=== PATIENT | female | born 1960 | race Caucasian/White ===

== ENCOUNTER → 2017-11-03 14:11 | Outpatient (REF) | payer OTHER, SELFPAY | LOC: LAB 14:11 | PROVIDERS: Visit Provider Emergency Medicine | DX: L98.9 Disorder of the skin and subcutaneous tissue, unspecified (principal) | CPT/HCPCS: 87070; 87077; 87205 ==

== ENCOUNTER → 2018-01-21 10:34 | Outpatient (CLI) | payer OTHER, SELFPAY ==
--- NOTE | 2018-01-21 10:42 | XR_ITS ---
XR chest 2V HISTORY: ITS.REASON: CHEST WALL PAIN,COUGH,H/O TOBACCO USE ORDERING PHYSICIAN: Denny Pack PATIENT AGE: 57 years COMPARISON: None FINDINGS: The cardiomediastinal silhouette and pulmonary vascularity are within normal limits. The lungs are clear without infiltrates, suspicious nodules, or pleural effusions. No acute bony abnormalities. IMPRESSION: Negative chest, no acute finding
== END ==
PROVIDERS: PCP Internal Medicine; Visit Provider Internal Medicine
DX: R07.89 Other chest pain (principal); R05 Cough; Z72.0 Tobacco use
CPT/HCPCS: 71046

== ENCOUNTER → 2018-01-27 09:31 | Outpatient (CLI) | payer OTHER, SELFPAY ==
--- NOTE | 2018-01-27 09:34 | US_ITS ---
US chest Ordering Physician: Denny Pack Patient Age: 57 years: Female HISTORY: ITS.REASON: LT CHEST WALL LIPOMA TECHNIQUE: Ultrasound left chest COMPARISON :2 view chest film 01/21/2018 FINDINGS . Ultrasound of the lower left back overlying the lower ribs performed. Scanning was merely perform the region of the patient's pain. . The majority of the scans apparently were scanned at the lower T-spine in the region to the left of T12 and over Left 11th and 12th ribs.. No unique findings with ultrasound. No discrete mass identified. Review of recent chest film reveals no obvious rib or vertebral body abnormality. The technologist reported no rash along this dermatome. If pain should persist or progress consider rib series or possibly CT chest if severe pain persist. . ----IMPRESSION: --------- 1. Ultrasound the lower back in the region of patient's pain reveals no unique findings. .. No mass evident. ... No architectural distortion of muscle group.
== END ==
PROVIDERS: Family Provider Emergency Medicine; PCP Internal Medicine; Visit Provider Internal Medicine
DX: D17.1 Benign lipomatous neoplasm of skin and subcutaneous tissue of trunk (principal)
CPT/HCPCS: 76604

== ENCOUNTER → 2020-05-03 13:41 | Outpatient (CLI) | payer OTHER, SELFPAY ==
--- NOTE | 2020-05-03 13:50 | US_ITS ---
PROCEDURE: US BREAST LT COMPLETE CLINICAL INDICATION: L BREAST LUMP COMPARISON: No exams were available for comparison FINDINGS: The wrist show fairly homogeneous echogenicity consistent with primarily fatty type breast parenchyma. There is a small hypoechoic nodular lesion near the nipple 3 o'clock position measuring 0.5 x 0.3 by 0.6 cm. This could be a small fibroadenoma but there is no mammogram correlation on mammogram performed same date. There is no abnormal cystic or solid lesion at the 8 to 9 o'clock position at the site of the patient's possible lump. There are normal appearing nodes in the axilla. IMPRESSION: Possible small fibroadenoma near the nipple, no ultrasound correlation for the possible palpable lesion Dictated by: Dr. Jules Urrutia MD 05/08/2020 09:45 Dr. Jules Urrutia MD in [place] 05/08/2020 09:45
--- NOTE | 2020-05-03 13:50 | MM_ITS ---
PROCEDURE: MM DIG MAMM BI DX W/CAD Digital Breast Tomosynthesis Included CLINICAL INDICATION: L BREAST LUMP There is a history of breast cancer in the patient's maternal aunt diagnosed after menopause. There has been a previous biopsy left breast at age 17 for benign disease. There is a possible palpable lump left breast 9 o'clock position felt by the referring physician. COMPARISON: MG DMSB DIGITAL MAMM-SCREEN BILATERAL from 08/17/2011 MG DMSB DIG MAMM-SCREEN AGNIESZKA from 05/23/2014 MG DMSB DIG MAMM-SCREEN AGNIESZKA from 06/10/2015 US US BREAST LT COMPLETE from 05/03/2020 TECHNIQUE: Standard CC and MLO images and 3D Tomosynthesis was obtained. R2 CAD reviewed. FINDINGS: Scattered diffuse fibroglandular densities are seen throughout both breasts. There are 3 mole markers right breast. There are few scattered benign-appearing microcalcifications in each breast. A skin marker was placed on the left breast inner quadrant near the nipple at the site of the patient's possible lump. There is no underlying abnormal density or evidence of architectural distortion at this site. Ultrasound performed the same date showed no abnormality at this location. There is no suspicious lesion and no suspicious microcalcifications. IMPRESSION: Fibrofatty parenchyma with no suspicious lesions seen BI-RAD Category: 2 Benign Finding(s) FOLLOW-UP: 1YR 1 Year Follow-up (A letter has been sent to the patient regarding results of the study.) Dictated by: Dr. Jules Urrutia MD 05/08/2020 09:41 Dr. Jules Urrutia MD in [place] 05/08/2020 09:41
== END ==
PROVIDERS: PCP Internal Medicine; Visit Provider Internal Medicine
DX: N63.20 Unspecified lump in the left breast, unspecified quadrant (principal)
CPT/HCPCS: 76641; 77062; 77066; G0279

== ENCOUNTER → 2020-12-04 14:28 | Outpatient (CLI) | payer OTHER, SELFPAY | PROVIDERS: Visit Provider Internal Medicine | DX: R10.32 Left lower quadrant pain (principal) | CPT/HCPCS: 80053; 81001; 85025; 87086 ==

== ENCOUNTER → 2020-12-04 14:46 | Outpatient (CLI) | payer BC, SELFPAY ==
[2020-12-04 14:35] LABS: Microscopic, Urine URINE MICROSCOPIC (MICROSCOPIC)
--- NOTE | 2020-12-04 14:51 | CT_ITS ---
PROCEDURE: CT ABDOMEN PELVIS WO CON CLINICAL INDICATION: LLQ PAIN Left lower quadrant pain COMPARISON: No exams were available for comparison TECHNIQUE: Axial images obtained with sagittal and coronal reformats. All CT scans at the facility use one or more dose reduction, viz: automated exposure control, ma/kV adjustment per patient size (including targeted exams where dose is matched to indication, i.e. head), or iterative reconstruction technique. FINDINGS: LOWER THORAX: No acute finding ABDOMEN & PELVIS: The liver, spleen, and right adrenal gland are unremarkable. There is mild enlargement of the left adrenal gland measuring 2.6 by 1 cm with an internal air bridge density of -7 Hounsfield units consistent with an adenoma. Pancreas has an unremarkable appearance. No renal or ureteral calculi. There is a mild amount of retained colonic feces. There is easton colonic diverticulosis. The appendix is slightly prominent however, there is no stranding of the periappendiceal fat. No convincing evidence of appendicitis. There is a small segment of bowel wall thickening with mild stranding of the pericolic fat involving the mid aspect of the descending colon at the level of the iliac crest. This is consistent with mild acute diverticulitis. No abscess or free air is evident. There is a small umbilical hernia containing fat. There are mild degenerative changes in the lumbar spine and hips. IMPRESSION: Diverticulitis involves the mid aspect of the descending colon. No evidence of abscess or perforation. Diffuse colonic diverticulosis. Prominent appendix but without stranding of the periappendiceal fat which may be a variant of normal. Appendix measures approximately 10 mm in diameter Small umbilical hernia containing fat. Left adrenal adenoma Dictated by: Tino Rand MD 12/04/2020 15:34 Tino Rand MD in [place] 12/04/2020 15:34
[2020-12-04 14:58] LABS: Appearance,Urine CLEAR (Clear); Bilirubin,Urine Negative (Negative); Blood, Urine Negative (Negative); Color,Urine YELLOW (Yellow); Glucose,Urine (UA) Negative (Negative); Ketones,Urine Negative (Negative); Leukocyte Esterase,Urine 1+ (Negative); Nitrate,Urine Negative (Negative); Protein,Urine Negative (Negative); Specific Gravity, Urine <= 1.005 (1.005-1.030); Urobilinogen,Urine 0.2 EU/dl (0.2)
[2020-12-04 15:02] LABS: Basophils # 0.1 K/mm3 (0-0.2); Basophils % 0.8 % (0.1-2.0); Eosinophils # 0.2 K/mm3 (0.0-0.4); Eosinophils % 2.6 % (0.1-12.0); Hematocrit 38.6 % (37.0-47.0); Hemoglobin 13.3 g/dL (12.2-16.2); Lymphocytes % 31.9 % (10-50); Mean Corpuscular HGB Conc 34.5 g/dL (31.8-35.4); Mean Corpuscular Hemoglobin 29.8 pg (27.0-31.2); Mean Corpuscular Volume 86.3 fl (81-99); Mean Platelet Volume 8.3 fl (7.4-10.4); Monocytes # 0.5 K/mm3 (0.1-1.0); Neutrophils # 3.5 K/mm3 (1.8-7.8); Neutrophils % 56.7 % (37.0-80.0); Platelet Count 211 K/mm3 (142-424); Red Blood Count 4.48 M/mm3 (4.20-5.40); Red Cell Distribution Width 13.2 % (11.5-17.5); White Blood Count 6.2 K/mm3 (4.8-10.8)
[2020-12-04 15:37] LABS: WBC,Urine Occasional #/hpf (0-3)
[2020-12-04 16:02] LABS: Chloride 105 mmol/L (98-107); Potassium 3.9 mmoL/L (3.5-5.1)
[2020-12-04 16:04] LABS: Alanine Aminotransferase 13 U/L (12-78); Aspartate Amino Transferase 22 U/L (14-36); Blood Urea Nitrogen 12 mg/dl (7-17); Estimated Glomerular Filt Rate 86 ml/min (>60); GFR (African American) 104 ML/MIN (>60)
[2020-12-04 16:05] LABS: Albumin Level 4.3 g/dl (3.5-5.0); Albumin/Globulin Ratio 1.6 (1.1-1.8); Alkaline Phosphatase 100 U/L (38-126); Bilirubin,Total 0.9 mg/dl (0.2-1.3); Calcium 9.4 mg/dl (8.4-10.2); Carbon Dioxide 22 mmol/L (22.0-30.0); Globulin 2.7 g/dL (1.3-3.2); Glucose 102 mg/dl (74-100)
[2020-12-04 16:15] LABS: Anion Gap 12.9 mEq/L (5-15); Sodium 136 mmol/L (136-145)
== END ==
PROVIDERS: PCP Internal Medicine; Visit Provider Internal Medicine
DX: R10.32 Left lower quadrant pain (principal)
CPT/HCPCS: 74176; 80053; 81001; 85025; 87086

== ENCOUNTER → 2021-02-05 08:42 | Outpatient (CLI) | payer BC, SELFPAY ==
[2021-02-05 08:54] LABS: Basophils # 0.1 K/mm3 (0-0.2); Basophils % 1.1 % (0.1-2.0); Eosinophils # 0.1 K/mm3 (0.0-0.4); Eosinophils % 1.3 % (0.1-12.0); Hematocrit 42.5 % (37.0-47.0); Hemoglobin 14.5 g/dL (12.2-16.2); Lymphocytes # 1.6 K/mm3 (0.7-4.5); Lymphocytes % 24.5 % (10-50); Mean Corpuscular HGB Conc 34.2 g/dL (31.8-35.4); Mean Corpuscular Hemoglobin 29.2 pg (27.0-31.2); Mean Corpuscular Volume 85.3 fl (81-99); Mean Platelet Volume 8.2 fl (7.4-10.4); Monocytes # 0.5 K/mm3 (0.1-1.0); Monocytes % 6.9 % (1.7-9.3); Neutrophils # 4.3 K/mm3 (1.8-7.8); Neutrophils % 66.2 % (37.0-80.0); Platelet Count 215 K/mm3 (142-424); Red Blood Count 4.98 M/mm3 (4.20-5.40); Red Cell Distribution Width 13.2 % (11.5-17.5); White Blood Count 6.5 K/mm3 (4.8-10.8)
== END ==
PROVIDERS: Visit Provider Surgery
DX: K57.92 Diverticulitis of intestine, part unspecified, without perforation or abscess without bleeding (principal)
CPT/HCPCS: 36415; 85025

== ENCOUNTER → 2021-02-18 09:52 | Outpatient (CLI) | payer BC, SELFPAY | PROVIDERS: Visit Provider Surgery | DX: Z01.812 Encounter for preprocedural laboratory examination (principal); Z20.822 Contact with and (suspected) exposure to COVID-19; Z12.11 Encounter for screening for malignant neoplasm of colon | CPT/HCPCS: U0003 ==

== ENCOUNTER 2021-02-20 07:17 | Day surgery (SDC) | payer BC, SELFPAY ==
[2021-02-18 14:06] VITALS: BMI 28.1
[2021-02-20 07:34] VITALS: BP 118/92; PULSE 100; RESP 18; TEMP 36.8; O2SAT 96
[2021-02-20 08:02] VITALS: O2SAT 97
--- NOTE | 2021-02-20 08:06 | P.PN_ITS ---
[facility] Anesthesia Checklist - Patient Identification Patient Identification: Arm Band - Structural Data Admitted From: Home Planned Operative Procedure/s: colonoscopy Consent for Planned Operative Procedure(s) Verified: Yes Verified Documents: Surgical Consent, History and Physical - Additional verifications Anesthesia Reactions: No - Airway Assessment C-Spine Mobility Assessed: Yes (mp2) TMJ Mobility Assessed: Yes Dentition: Poor Dentition - Neurological Assessment Level of Consciousness: Awake, Alert - Anesthesia Plan Anesthesia Risk discussed: Yes Anesthesia Plan: Verified ASA Class: II Anesthesia Type: MAC [facility] History I have reviewed the patient's past medical history: Yes Medical History: Reports:: Anxiety, Hyperlipidemia, Hypertension Denies:: Cancer, Diabetes Mellitus Type 1, Diabetes Mellitus Type 2, MRSA, Seizures *Have you ever received a pneumonia vaccine?: No *Have you received a flu vaccine this season?: No Anesthesia experience/problems:: nac Laterality Cases: Left: Breast Biopsy Other Surgeries: Yes: Colonoscopy, Hysterectomy-Partial Amputation: No Fractures: Yes (right wrist, left foot, right foot) - *Social History Last grade of school completed: High school graduate Smoking Status: Former smoker Tobacco Type: cigarettes # Packs/Day (cigarettes): 1 Alcohol Intake: never Substance Use Type: denies use *Occupational Status:: employed Housing: house Household Members: other *Travel in the last 8 weeks: None - Psychiatric History Pschychiatric History:: Reports:: Anxiety Family Hx:: Cancer, Coronary Artery Disease, Heart Attack, Hyperlipidemia, Hypertension
[2021-02-20 08:40] VITALS: BP 115/71; PULSE 80; RESP 18; TEMP 36.2; O2SAT 95
--- NOTE | 2021-02-20 08:41 | HMH.SCOPE ---
- Procedure: Date: 02/20/21 Patient Date of :: 1960 Procedure Performed:: Colonoscopy with polypectomy by means other than snare Indications:: Diverticulosis Recent diverticulitis History of colon polyps Performing Provider:: Martienz Santiago MD Referring Provider:: . Sedation:: Monitored anesthesia care Procedure:: After informed consent was obtained the patient was taken to the endoscopy suite. Sedation ensued after the patient was transferred to the left lateral decubitus position. Pulse, blood pressure, and oxygen saturation were monitored throughout the procedure. Digital rectal exam revealed no significant abnormality. The colonoscope was placed in position. The entire colon was evaluated. The colonoscope was carefully removed and the patient was transferred to recovery in stable condition. Please see findings and specimens below for detail. Findings:: Hemorrhoidal tags Pandiverticulosis Bowel preparation moderate (poor in some areas and fair in others) Severe sigmoid tortuosity Severe colonic spasticity Polyp at 40 cm Specimens:: Polyp at 40 cm Recommendations:: Timing of repeat colonoscopy is pending pathology but will likely be between 2-3 years secondary to history of significant polyps, moderate bowel preparation (poor in some areas), severe sigmoid tortuosity, and colonic spasticity. Complications:: No immediate Estimated blood obtained (mL): 1
[2021-02-20 08:50] VITALS: BP 120/74; PULSE 83; RESP 18; O2SAT 99
[2021-02-20 09:02] VITALS: BP 125/83; PULSE 81; RESP 18; O2SAT 100
== END 2021-02-20 09:08 | disposition home or self-care (01) ==
LOC: OUTP 07:21
PROVIDERS: PCP Internal Medicine; Visit Provider Surgery
PROC: 0DJD8ZZ Inspection of Lower Intestinal Tract, Via Natural or Artificial Opening Endoscopic (ICD-10-PCS; CPT 45380; principal; 2021-02-20 08:30)
DX: K57.30 Diverticulosis of large intestine without perforation or abscess without bleeding (principal); K57.32 Diverticulitis of large intestine without perforation or abscess without bleeding; K58.9 Irritable bowel syndrome, unspecified; K64.0 First degree hemorrhoids; K56.2 Volvulus; K63.5 Polyp of colon; Z86.010 Personal history of colon polyps
CPT/HCPCS: 45380

== ENCOUNTER 2022-12-10 08:26 | Emergency (ER) | payer BC, SELFPAY ==
[2022-12-10 08:50] VITALS: BP 148/90; PULSE 84; RESP 18; TEMP 36.8; O2SAT 98; BMI 29.2
--- NOTE | 2022-12-10 08:56 | EXP.UTC ---
Discharge Plan Disposition Patient Disposition: Home, Self-Care Condition: Good Prescriptions Prescriptions: New prednisone 5 mg tablets,dose pack See Rx Instructions .ROUTE .COMPLEX Qty: 21 0RF Rx Instructions: take as directed on package instructions No Action aspirin 325 mg tablet 325 mg PO DAILY Referrals Follow up/Referrals: Denny Pack MD [Primary Care Provider] - See instructions Activity Restrictions/Add. Instructions Additional Instructions/Restrictions: Oatmeal bathes may help with itching and drying of the rash Calamine lotion may help to dry the rash Start oral steriods tomorrow Follow up immediately with Eye Doctor if no improvement or any worsening of symptoms/swelling around the eye Straight to ER if any life threatening symptoms Clinical Impressions Clinical Impression: Poison katia dermatitis Instructions Patient Instructions: DI for Poison Katia Allergy Discharge ED Provider: Yokasta Slade [facility] General Stated complaint: Possible poison katia rash on face w/ inflammation Time Seen by Provider: 12/10/22 08:56 History of Present Illness Provider Complaint: Patient states that she has been pulling weeds at home and started breaking out on both arms abdomen and left side face around her left cheek and forehead area thinks it may be poison katia States that she is worried where it is so close to her eye so she came in today to get something to help Related Data Home Medications Medication Instructions Recorded Confirmed aspirin 325 mg tablet 325 mg PO DAILY heart health 05/27/20 02/25/21 Previous Rx's Medication Instructions Recorded prednisone 5 mg tablets in a dose See Rx Instructions PO .COMPLEX 12/10/22 pack #21 tabs Allergies Allergy/AdvReac Type Severity Reaction Status Date / Time acetaminophen Allergy Unknown NA-NAUSEA/V Verified 02/25/21 09:56 [From DARVOCET-N] OMITING codeine [CODEINE] Allergy Unknown NA-NAUSEA/V Verified 02/25/21 09:56 OMITING meperidine [From DEMEROL] Allergy Unknown NA-NAUSEA/V Verified 02/25/21 09:56 OMITING propoxyphene Allergy Unknown NA-NAUSEA/V Verified 02/25/21 09:56 [From DARVOCET-N] OMITING PFSH PFSH Disclaimer: The information contained in this section may have been updated after the patient was seen, as this information can be updated by other users. Medical History (Updated 12/10/22 @ 09:35 by Yokasta Slade APRN) Cyst (solitary) of breast Depression Hypertension Migraine Ovarian tumor Urinary tract infection Social History Smoking Status: Former smoker second hand exposure: Yes alcohol intake: never substance use type: denies use current occupational status: employed Travel in the last 8 weeks: None household members: other housing: house caffeine: Yes ROS Obtained: Yes All systems reviewed & no additional complaints except as documented and Yes Systems reviewed as appropriate & no additional complaints except as documented Constitutional Constitutional: Reports system reviewed and no additional complaints, except as documented and Reports as per HPI Eyes Eyes: Reports system reviewed and no additional complaints, except as documented and Reports as per HPI ENT Ears, Nose, Mouth, and Throat: Reports system reviewed and no additional complaints, except as documented and Reports as per HPI Cardiovascular Cardiovascular: Reports system reviewed and no additional complaints, except as documented and Reports as per HPI Respiratory Respiratory: Reports system reviewed and no additional complaints, except as documented and Reports as per HPI Gastrointestinal Gastrointestingal: Reports system reviewed and no additional complaints, except as documented and as per HPI Integumentary/Breasts Skin/Breast: Reports system reviewed and no additional complaints, except as documented, Reports as per HPI, Reports pruritus and Reports rash Physical Exam General General appear
[2022-12-10 09:16] VITALS: BP 148/90; PULSE 84; RESP 18; TEMP 36.8; O2SAT 98
== END 2022-12-10 09:40 | disposition home or self-care (01) ==
PROVIDERS: Emergency Provider Nurse Practitioner; PCP Internal Medicine
DX: L23.7 Allergic contact dermatitis due to plants, except food (principal); I10 Essential (primary) hypertension; F32.9 Major depressive disorder, single episode, unspecified; Z87.891 Personal history of nicotine dependence; W60.XXXA Contact with nonvenomous plant thorns and spines and sharp leaves, initial encounter
CPT/HCPCS: 96372; 99204; 99212; G0463

== ENCOUNTER 2023-04-20 11:35 | Day surgery (SDC) | payer BC, SELFPAY ==
[2023-04-19 13:41] VITALS: BMI 28.6
[2023-04-20 11:52] VITALS: BP 179/88; PULSE 77; RESP 18; TEMP 36.5; O2SAT 97
--- NOTE | 2023-04-20 11:58 | P.PCN_ITS ---
Procedure: Date: 04/20/23 Patient Date of :: 1960 Procedure Performed:: Colonoscopy Indications:: History of colon polyps Note: Most recent colonoscopy in February 2021 was somewhat complicated by modera te bowel preparation, severe spasticity, and severe tortuosity. Hemorrhoidal tags and pandiverticulosis confirmed. A benign polyp at 40 cm was excised. Performing Provider:: Martinez Santiago MD Referring Provider:: . Sedation:: Monitored anesthesia care Procedure:: After informed consent was obtained the patient was taken to the endoscopy suite. Sedation ensued after the patient was transferred to the left lateral decubitus position. Pulse, blood pressure, and oxygen saturation were monitored throughout the procedure. Digital rectal exam revealed no significant abnormality. The colonoscope was placed in position. The entire colon was evaluated. The colonoscope was carefully removed and the patient was transferred to recovery in stable condition. Please see findings and specimens below for detail. Findings:: Bowel preparation moderate Unchanged hemorrhoidal tags Unchanged pandiverticulosis Persistent significant spasticity/lack of relaxation Persistent tortuosity Specimens:: None Recommendations:: Repeat colonoscopy approximately 3 years secondary to persistent limitations in visualization. Complications:: No immediate Estimated blood obtained (mL): 0 Colonoscopy Component Colonoscopy Component Was a colonoscopy performed during today's procedure?: Yes Recommended follow up colonoscopy of at least 10 years?: No If no, follow up colonoscopy recommended in ___ years?: (See above) Reason for not recommending >/= 10 yr follow-up interval?: (See above)
[2023-04-20 12:01] VITALS: O2SAT 97
[2023-04-20 12:27] VITALS: BP 119/69; PULSE 77; RESP 17; TEMP 37.1; O2SAT 94
--- NOTE | 2023-04-20 12:28 | P.PNANES_ITS ---
[facility] Disclaimer: The information contained in this section may have been updated after the patient was seen, as this information can be updated by other users. Medical History Cyst (solitary) of breast Depression Hypertension Migraine Ovarian tumor Urinary tract infection Surgical History (Updated 04/20/23 @ 11:51 by John Eckert RN) No history of previous surgery Family History Other Colon cancer Social History Smoking Status: Current every day smoker tobacco type: cigarettes packs per day: 1 second hand exposure: Yes alcohol intake: never substance use type: denies use current occupational status: employed Travel in the last 8 weeks: None household members: other housing: house caffeine: Yes [facility] Anesthesia Checklist Patient Identification Patient Identification: Verbal (Name & ) Structural Data Admitted From: Home Planned Operative Procedure/s: colonoscopy Consent for Planned Operative Procedure(s) Verified: Yes Additional verifications Anesthesia Reactions: No Airway Assessment Mallampati Score:: Class II C-Spine Mobility Assessed: Yes TMJ Mobility Assessed: Yes Dentition: Good Dentition Neurological Assessment Level of Consciousness: Awake, Alert and Appropriate Anesthesia Plan Anesthesia Risk discussed: Yes Anesthesia Plan: Verified ASA Class: II Anesthesia Type: MAC
[2023-04-20 12:37] VITALS: BP 117/70; PULSE 77; RESP 16; O2SAT 97
[2023-04-20 12:47] VITALS: BP 124/71; PULSE 76; RESP 17; O2SAT 98
--- NOTE | 2023-04-20 14:32 | P.PNANES_ITS ---
[facility] Disclaimer: The information contained in this section may have been updated after the patient was seen, as this information can be updated by other users. Medical History Cyst (solitary) of breast Depression Hypertension Migraine Ovarian tumor Urinary tract infection Surgical History (Updated 04/20/23 @ 11:51 by John Eckert RN) No history of previous surgery Family History Other Colon cancer Social History Smoking Status: Current every day smoker tobacco type: cigarettes packs per day: 1 second hand exposure: Yes alcohol intake: never substance use type: denies use current occupational status: employed Travel in the last 8 weeks: None household members: other housing: house caffeine: Yes [facility] Anesthesia Checklist Patient Identification Patient Identification: Verbal (Name & ) Structural Data Admitted From: Home Planned Operative Procedure/s: colonoscopy Consent for Planned Operative Procedure(s) Verified: Yes Additional verifications Anesthesia Reactions: No Airway Assessment Mallampati Score:: Class II C-Spine Mobility Assessed: Yes TMJ Mobility Assessed: Yes Dentition: Poor Dentition Neurological Assessment Level of Consciousness: Awake, Alert and Appropriate Anesthesia Plan Anesthesia Risk discussed: Yes Anesthesia Plan: Verified ASA Class: II Anesthesia Type: MAC
== END 2023-04-20 12:52 | disposition home or self-care (01) ==
PROVIDERS: PCP Internal Medicine; Visit Provider Surgery
PROC: 0DJD8ZZ Inspection of Lower Intestinal Tract, Via Natural or Artificial Opening Endoscopic (ICD-10-PCS; CPT 45378; principal; 2023-04-20 12:30)
DX: Z12.11 Encounter for screening for malignant neoplasm of colon (principal); Z86.010 Personal history of colon polyps; K56.2 Volvulus
CPT/HCPCS: 45378